=== PATIENT | male | born 2000 | race Two or more races ===

== ENCOUNTER 2022-01-11 00:12 | Emergency (ER) | payer OTHER ==
[~2022-01-11] VITALS: Ht 167.6 cm; Wt 90.7 kg
[2022-01-11] MEDS ORDERED: LIDOCAINE 1% HCL (LOCAL ANESTH.) INJ 20ML MDV ID ONE (01:45)
[2022-01-11] MEDS ORDERED: MIDAZOLAM HCL 2MG/2ML 2ml VIAL (1mg/ml) IV ONE (01:45)
[2022-01-11] MEDS ORDERED: HYDROcodone-ACET 5/325MG TAB PO ONE (01:45)
[2022-01-11] MEDS ORDERED: LIDOCAINE 1%HCL (LOCAL ANESTH) 10 ML MDV ONE (02:01)
[2022-01-11 05:52] VITALS: BP 109/68
== END 2022-01-11 05:40 | disposition home or self-care (01) ==
LOC: ER 00:22
DX: S43.015A Anterior dislocation of left humerus, initial encounter (principal); X50.1XXA Overexertion from prolonged static or awkward postures, initial encounter; Y93.89 Activity, other specified; Y92.89 Other specified places as the place of occurrence of the external cause; Y99.8 Other external cause status
CPT/HCPCS: 23650; 73020; 73030; 96374; 99284; J2001; J2250

== ENCOUNTER 2022-02-27 12:52 | Emergency (ER) | payer OTHER ==
[~2022-02-27] VITALS: Ht 170.2 cm; Wt 90.7 kg
[2022-02-27] MEDS ORDERED: FAMOTIDINE (10MG/ML) 2ML VL IV ONE (13:30)
[2022-02-27] MEDS ORDERED: PROPOFOL 10 MG/ML 20 ML IV ONE (13:30)
[2022-02-27] MEDS ORDERED: SODIUM CHLORIDE 0.9% 1,000 ML IV ONE (13:30)
[2022-02-27] MEDS ORDERED: METOCLOPRAMIDE HCL 5MG/ml INJ 2ml VIAL IV ONE (13:30)
[2022-02-27] MEDS ORDERED: PROPOFOL 100 ML IV ONE (14:46)
[2022-02-27 17:30] VITALS: BP 128/88
== END 2022-02-27 17:42 | disposition home or self-care (01) ==
LOC: ER 12:52
DX: S43.005A Unspecified dislocation of left shoulder joint, initial encounter (principal); X58.XXXA Exposure to other specified factors, initial encounter; Y93.89 Activity, other specified; Y92.89 Other specified places as the place of occurrence of the external cause; Y99.8 Other external cause status
CPT/HCPCS: 23650; 73020; 73030; 99152; 99153; 99285; J2704